=== PATIENT | male | born 1960 | race Caucasian/White ===

== ENCOUNTER 2017-03-06 11:39 | Outpatient (CLI) | payer MEDICARE, MEDICAID ==
[~2017-03-06 11:39] MED LIST: ADV50500 IH; ALBU18HF2 IH; ALBU6.7H INH; ASPI-845 PO; CETI10TA15 PO; DOCU-28 PO; FOLIC ACID PO; FURO-149 PO; HYDR-565 PO; LISI-600 PO; MELO-102 PO; MULT-342 PO; NITR0.4T SL; PANT-47 PO; PRAV40TA3 PO; PRIM50TA PO; PROP20TA6 PO; SPIIN INH
== END 2017-03-06 23:59 | disposition home or self-care (01) ==
LOC: LAB 11:39
PROVIDERS: ATTEND Family Medicine
DX: T78.3XXD Angioneurotic edema, subsequent encounter (principal); J45.909 Unspecified asthma, uncomplicated; J44.9 Chronic obstructive pulmonary disease, unspecified; F17.200 Nicotine dependence, unspecified, uncomplicated; I10 Essential (primary) hypertension; Z98.890 Other specified postprocedural states
CPT/HCPCS: 36415

== ENCOUNTER 2019-02-22 08:50 | Outpatient (CLI) | payer MEDICARE, MEDICAID ==
[~2019-02-22 08:50] MED LIST changes: -ALBU6.7H INH; +ALBU6.7H9 INH; +HYDR-4353 PO; -HYDR-565 PO
== END 2019-02-22 23:59 | disposition home or self-care (01) ==
LOC: RAD 08:50
PROVIDERS: ATTEND Internal Medicine Interventional Cardiology
DX: I51.7 Cardiomegaly (principal); Z95.0 Presence of cardiac pacemaker
CPT/HCPCS: 71046